=== PATIENT | male | born 1955 | race Caucasian/White ===

== ENCOUNTER 2019-09-30 06:20 | Inpatient (IN) | payer OTHER, MEDICAID ==
[~2019-09-30] VITALS: Ht 182.9 cm; Wt 59.9 kg
[2019-09-30 06:40] VITALS: BP_SYST 125
--- NOTE | 2019-09-30 06:40 | NUR ---
Patient to ER bed 1 to gown for evaluation. Side rails up.
--- NOTE | 2019-09-30 06:40 | NUR ---
BULMARO Hitchcock at bedside examining patient.
--- NOTE | 2019-09-30 06:40 | NUR ---
Pt brought in by . Pt awake, alert, oriented x3. Pt has muscular dystrophy and is wheelchair bound with R sided defecits from previous cerebral event per . Pt states that he has been having diffused abdominal pain 7/10 for approximately 2 days prior to coming to the ED. Pt states that he also has abdominal hernia that he has been bothered by in the past. Pt states that he would like to find out whats going on with it. Pt denies chest pain, nausea, vomiting, diarrhea, shortness of breath. pt denies any other medical complaint at this time. VSS
[2019-09-30] MEDS ORDERED: NACL 0.9% 1,000 ML IV ONE (06:45)
[2019-09-30] MEDS ORDERED: KETOROLAC TROMETHAMINE 30 MG VIAL IVP ONE (06:45)
--- NOTE | 2019-09-30 07:00 | NUR ---
Pt to CT via [facility].
[2019-09-30] MEDS ORDERED: LUBI24CA5 PO (07:02)
[2019-09-30] MEDS ORDERED: ERGO500020 PO (07:03)
[2019-09-30] MEDS ORDERED: SERT50TA12 PO (07:03)
[2019-09-30] MEDS ORDERED: MONT10TA25 PO (07:04)
[2019-09-30] MEDS ORDERED: MODA200T48 PO (07:05)
[2019-09-30] MEDS ORDERED: AMLO1TAB13 PO (07:06)
[2019-09-30] MEDS ORDERED: TEST75AU SQ (07:07)
--- NOTE | 2019-09-30 07:19 | NUR ---
Pt back from CT, returned to [facility]
--- NOTE | 2019-09-30 07:42 | NUR ---
report received from Scottie MORRISON. Pt returned from CT scan in stable condition.
--- NOTE | 2019-09-30 07:50 | NUR ---
Report Given to TAMIKO Zaragoza. All care endorsed.
--- NOTE | 2019-09-30 08:00 | NUR ---
# 22 gauge angiocath placed to left bicep. Use of asceptic technique. Opsite placed over site. Blood return noted. Blood for lab drawn from site. Flushed with 10 cc of normal saline. No evidence of infiltration noted. Patient tolerated well.
[2019-09-30 08:04] LABS: BASOPHILS # (AUTO) 0.1 K/uL (0.0-0.2); BASOPHILS % (AUTO) 0.3 % (0.0-2.0); EOSINOPHILS % (AUTO) 0.2 % (0.0-4.0); HEMATOCRIT 51.1 % (36-54); HEMOGLOBIN 17.2 g/dL (14.0-18.0); LYMPHOCYTES % (AUTO) 4.3 % (20.5-51.5); MEAN CORPUSCULAR HEMOGLOBIN 31 pg (27-31); MEAN CORPUSCULAR HGB CONC 34 % (32-36); MEAN CORPUSCULAR VOLUME 92 fL (79.0-98.0); MONOCYTES # (AUTO) 2.6 K/uL (0.0-1.0); MONOCYTES % (AUTO) 11.6 % (1.7-9.3); NEUTROPHILS # (AUTO) 19.1 K/uL (1.8-7.7); NEUTROPHILS % (AUTO) 83.6 % (40.0-70.0); PLATELET COUNT (AUTO) 205 K/uL (130-430); RED BLOOD CELL COUNT(AUTO) 5.56 MIL/uL (4.2-6.2); RED CELL DISTRIBUTION WIDTH 14.2 % (9.0-15.0); WHITE BLOOD COUNT (AUTO) 22.8 K/uL (4.8-10.8)
--- NOTE | 2019-09-30 08:10 | NUR ---
NS 1l infusing per MD order. Medicated the pt w/ Toradol for pain. Will reassess.
[2019-09-30 08:17] LABS: CREATININE 1.15 mg/dL (0.55-1.30); POTASSIUM 4.4 mmol/L (3.5-5.1)
[2019-09-30 08:21] LABS: ALBUMIN 4.2 g/dL (3.4-4.8); TOTAL BILIRUBIN 1.3 mg/dL (0.0-1.0)
[2019-09-30] MEDS: D5NS 1,000 ML IV SCH ×2 (09:07→21:46)
--- NOTE | 2019-09-30 09:13 | NUR ---
called for a Med Surg bed. Info given to Tom NUNEZ
[2019-09-30] MEDS ORDERED: metroNIDAZOLE 500 mg/NS 100 ML IV ONE ×3 (09:15→19:45)
--- NOTE | 2019-09-30 12:10 | NUR ---
Flagyl IVPB given per md order. Blood cx were drawn priorly.
--- NOTE | 2019-09-30 14:00 | NUR ---
Pt getting lactic acid drawn at the bedside
--- NOTE | 2019-09-30 14:26 | NUR ---
Medication reconciliation completed with information provided by pt's . Any prior medication reconciliation on file was reviewed and corrected.
[2019-09-30 15:00] VITALS: BP_SYST 135
--- NOTE | 2019-09-30 15:15 | NUR ---
Patient will be admitted to care of Dr. Monet. Admitted to Med Surg unit. Will go to room 117-B. Belongings list completed. Complete and up to date summary report printed. SBAR report to be given at bedside with opportunity for questions. IV is on the left bicep, patent and infusing well.
--- NOTE | 2019-09-30 16:00 | NUR ---
ADMISSION: RECEIVED PT FROM ER IN STABLE CONDITION, A/A/OX3, DX: SAFETY/ DISCOMFORT, R/T ABD PAIN. PT HAS NO C/O PAIN AT THIS TIME, VS WNL, AFEBRILE, BREATH SOUNDS ARE CLEAR, BREATHING UNLABORED, SKIN INTACT,WARM, DRY TO TOUCH, POSITIONED FOR COMFORT, AT BEDSIDE, CALL LIGHT PLACED WITHIN REACH, WILL CONT' TO MONITOR AND ASSESS.
[2019-09-30 16:43] LABS: BILIRUBIN,URINE 1+ (NEGATIVE); BLOOD, URINE 3+ (NEGATIVE); CLARITY/URINE SL CLOUDY (CLEAR); COLOR,URINE YELLOW (YELLOW); GLUCOSE,URINE 1+ (NEGATIVE); KETONES,URINE TRACE (NEGATIVE); LEUKOCYTE ESTERASE ,URINE 2+ (NEGATIVE); NITRITE, URINE NEGATIVE (NEGATIVE); PROTEIN URINE TRACE (NEGATIVE)
[2019-09-30 16:58] LABS: BACTERIA,URINE FEW /HPF (None Seen); WBC,URINE >100 /HPF (0-3)
[2019-09-30 17:00] LABS: MUCUS,URINE None Seen /LPF (None Seen)
[2019-09-30 17:01] LABS: FINE GRANULAR CASTS,URINE 0-10 /LPF (None Seen); URINE AMORPHOUS URATE 3+ /HPF (None Seen)
--- NOTE | 2019-09-30 18:00 | NUR ---
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
--- NOTE | 2019-09-30 18:35 | NUR ---
PAGED: I PAGED DR. HERZOG I SPOKE WITH NITO LOZANO FOR THIS NEW ADMISSION PATIENT
[2019-09-30] MEDS ORDERED: MORPHINE 2 MG/ML INJ. SYRINGE IVP PRN (18:45)
[2019-09-30] MEDS ORDERED: ONDANSETRON HCL 4 MG/2 ML VIAL IVP PRN (18:45)
[2019-09-30] MEDS ORDERED: METOCLOPRAMIDE HCL 10 MG/2 ML VIAL IVP PRN (18:45)
[2019-09-30] MEDS ORDERED: ACETAMINOPHEN 325 MG TABLET PO PRN (18:45)
[2019-09-30 19:00] VITALS: BP_SYST 133
--- NOTE | 2019-09-30 19:15 | NUR ---
change of shift.pt is a new admission.pt.presents hx;multiple sclerosis.pt.presents rt.sided weakness.pt.presents speech status;slurred. i am to f/u re;iv fluids,abx initiation.general status stable.respiratory status stable;unlabored@room air.call light/telephone w/in reach of the pt:lt.side;hand.
[2019-09-30 20:00] VITALS: BP_SYST 133
--- NOTE | 2019-09-30 20:00 | NUR ---
pt.assessed.v/s assessed;values w/in normal limits./no c/o pain,nausea.i have provided the indication:npo diet status.i have assisted the pt w/the urinal:measured/cleaned;placed w/in reach of the pt;lt.side;hand. pt.assessed for cleanliness.pt.repositioned.call light/telephone placed w/in reach of the pt:lt.side;hand.
--- NOTE | 2019-09-30 20:30 | NUR ---
pt.submitted to us;abdomen.per .to await the results.
--- NOTE | 2019-09-30 21:00 | NUR ---
i have assisted the pt. w/the urinal.measured/cleaned placed w/in reach of the pt.lt.side;hand.no c/o pain,nausea.
[2019-09-30] MEDS: LEVOFLOXACIN 500 MG/D5W 100 ML IV SCH (21:45)
--- NOTE | 2019-09-30 22:00 | NUR ---
pt.assessed.pt.presents quiescent affect;calm.i have assisted the pt.w/the urinal.measured/cleaned.i have initiated the iv fluids administration. i have initiated the administration of the abx;levaquin,flagyl.iv access:location:lt.bicept.intact;patent.pt assessed for cleanliness.pt repositioned.call light/telephone placed w/in reach of the pt.lt.side;hand.
--- NOTE | 2019-09-30 22:14 | NUR ---
PAGED I PAGED DR. HERZOG @ 1998 I SPOKE WITH NITO HERZOG CALLED BACK @ [phone]
--- NOTE | 2019-09-30 22:15 | NUR ---
paged;re the results;us:abdomen.awaiting the return call per .
--- NOTE | 2019-09-30 22:30 | NUR ---
returned the paged.i have apprised of the results;us:abdomen. ordered to paged and convey results to .;a paged.
--- NOTE | 2019-09-30 22:43 | NUR ---
PAGED/ CONSULT I PAGED DR. DÍAZ, ELISA RABAGO RN INFORMED HIM ABOUT THE CONSULT FOR GALLSTONES
--- NOTE | 2019-09-30 22:45 | NUR ---
;elana returned the page.i have conveyed to the results;us;abdomen.pt.is possible surgery per ;in am; 10/01/19.
[2019-10-01] VITALS: BP_SYST 125
--- NOTE | 2019-10-01 | NUR ---
pt.assessed.v/s assessed.values w/in normal limits.no c/o pain,nausea.iv access intact;patent.iv fluids infusing. general status stable.respiratory status stable;unlabored.pt.assessed for cleanliness.pt.repositioned.i have attended to the urinal. call light/telephone placed w/in reach of the pt.
--- NOTE | 2019-10-01 02:00 | NUR ---
pt.assessed.pt.presents quiescent affect;calm,somnolent.pt.assessed for cleanliness.pt.repositioned.i have attended to the urinal. iv access intact;patent.iv fluids infusing.no c/o pain,nausea.general status stable.respiratory status stable. call light/telephone placed w/in reach of the pt:lt.side;hand.
--- NOTE | 2019-10-01 04:00 | NUR ---
pt.assessed.pt.presents quiescent affect;calm,somnolent.pt.assessed for cleanliness.pt.repositioned.iv access intact;patent;iv fluids infusing.general status stable.respiratory status stable;unlabored.urinal w/in reach of the pt.lt.side;hand.call light/telephone placed w/in reach of the pt;lt.side;hand.
[2019-10-01] MEDS: metroNIDAZOLE 500 mg/NS 100 ML IV SCH ×3 (05:45→21:03)
[2019-10-01] MEDS: MORPHINE 4 MG/ML INJ. SYRINGE IVP PRN (05:48)
--- NOTE | 2019-10-01 06:30 | NUR ---
pt.assessed.pt.assessed for cleanliness.pt.cleaned.pt repositioned.pt.had requested medication;pain.i administered morphine;4mg ivp;pt.gestured;head that the medication was efficacious.upon re-assessment.i administered the flagyl;0600a dose.i telephoned the pt's .i apprised her that the surgeon; had ordered surgery:pt's adamant that the pt.may not require surgery and discuss the possible surgery w//sharonda family members and the pt's neurologist:out/pt.iv access intact;patent iv;fluids infusing.call light/.telephone placed w/in reach of the pt.
[2019-10-01 07:27] LABS: BASOPHILS % (AUTO) 0.2 % (0.0-2.0); EOSINOPHILS # (AUTO) 0.1 K/uL (0.0-0.4); EOSINOPHILS % (AUTO) 0.8 % (0.0-4.0); HEMATOCRIT 42.8 % (36-54); HEMOGLOBIN 14.3 g/dL (14.0-18.0); LYMPHOCYTES # (AUTO) 0.9 K/uL (1.0-5.5); LYMPHOCYTES % (AUTO) 4.7 % (20.5-51.5); MEAN CORPUSCULAR HEMOGLOBIN 31 pg (27-31); MEAN CORPUSCULAR HGB CONC 33 % (32-36); MEAN CORPUSCULAR VOLUME 92 fL (79.0-98.0); MONOCYTES # (AUTO) 2.1 K/uL (0.0-1.0); NEUTROPHILS # (AUTO) 16.2 K/uL (1.8-7.7); NEUTROPHILS % (AUTO) 83.3 % (40.0-70.0); PLATELET COUNT (AUTO) 167 K/uL (130-430); RED BLOOD CELL COUNT(AUTO) 4.63 MIL/uL (4.2-6.2); RED CELL DISTRIBUTION WIDTH 13.9 % (9.0-15.0); WHITE BLOOD COUNT (AUTO) 19.4 K/uL (4.8-10.8)
--- NOTE | 2019-10-01 07:30 | NUR ---
Opening note patient resting in bed at this time, A/ox4, no complaints of pain. Iv patent, intact, and infusing fluids as ordered. no adverse side effects. No infiltration noted. On safety and aspiration precautions, HOB kept elevated, 3 side rails up, bed alarm on, call light within reach. patient in stable condition. Will continue to monitor.
[2019-10-01 07:47] LABS: INR 1.1 (0.80-1.20); PROTHROMBIN TIME 10.8 SECS (9.5-12.5)
[2019-10-01 08:00] VITALS: BP_SYST 135
[2019-10-01 08:27] LABS: CALCIUM 7.8 mg/dL (8.4-11.0); CREATININE 0.82 mg/dL (0.55-1.30); POTASSIUM 3.5 mmol/L (3.5-5.1); TOTAL BILIRUBIN 0.8 mg/dL (0.0-1.0)
[2019-10-01] MEDS: LOSARTAN POTASSIUM 50 MG TABLET (COZAAR) PO SCH (09:00)
[2019-10-01] MEDS ORDERED: VALSARTAN PO SCH (09:00)
[2019-10-01] MEDS: SERTRALINE HCL 50 MG TABLET PO SCH (09:00)
[2019-10-01] MEDS ORDERED: [UNRECOGNIZED DRUG - OTHER] PO SCH (09:00)
[2019-10-01] MEDS ORDERED: AMLODIPINE BESYLATE PO SCH (09:00)
[2019-10-01] MEDS: amLODIPine BESYLATE 10 MG TABLET PO SCH (09:00)
--- NOTE | 2019-10-01 09:00 | NUR ---
medications Morning medications held, patient is NPO, awaiting surgery.
--- NOTE | 2019-10-01 10:34 | NUR ---
Nutrition Update Beau Scale 14 noted. Pt admitted for abd pain. Diet: NPO BMI: 18 kg/m2 RD to follow per nutrition care standards.
--- NOTE | 2019-10-01 11:30 | NUR ---
Consent Consent for surgery and anesthesia signed by at bedside.
[2019-10-01] MEDS: D5NS 1,000 ML IV SCH (11:49)
[2019-10-01 11:59] VITALS: BP_SYST 117
--- NOTE | 2019-10-01 13:30 | NUR ---
Surgery CHG bath provided, patient left for surgery in stable condition at this time.
[2019-10-01] MEDS ORDERED: IOHEXOL 0 ML IV ONE (14:13)
--- NOTE | 2019-10-01 16:18 | NUR ---
Dietitian Recommendations * Consider advance diet if/when medically appropriate * Consider ONS for weight gain promotion LP, RD Please refer to Nutrition Assessment for details. Addendum: 10/01/19 at [address] Amended: Links added.
[2019-10-01] MEDS ORDERED: ROCURONIUM BROMIDE 10 MG/ML (ZEMURON) ONE (16:41)
[2019-10-01] MEDS ORDERED: LR 1,000 ML IV.SOLN IV ONE (16:41)
[2019-10-01] MEDS ORDERED: PROPOFOL 200MG/ 20ML VIAL (DIPRIVAN) IV ONE (16:41)
[2019-10-01] MEDS ORDERED: NS 1000 ML IV.SOLN IV ONE (16:41)
[2019-10-01] MEDS ORDERED: ONDANSETRON HCL 4 MG/2 ML VIAL ONE (16:41)
[2019-10-01] MEDS ORDERED: SUGAMMADEX SODIUM 200 MG/2 ML VIAL IV ONE (16:41)
[2019-10-01] MEDS ORDERED: fentaNYL CITRATE/PF 100 MCG/2 ML AMP ONE (16:41)
[2019-10-01] MEDS ORDERED: DEXAMETHASONE SOD PHOSPHATE 4 MG/ML VIAL ONE (16:41)
[2019-10-01] MEDS ORDERED: MIDAZOLAM HCL 5 MG/ML VIAL (VERSED) IV ONE (16:41)
[2019-10-01] MEDS ORDERED: ePHEDrine sulfate 50 MG/ML VIAL ONE (16:41)
[2019-10-01] MEDS ORDERED: SEVOFLURANE 15 MIN GAS INH ONE (16:41)
[2019-10-01] MEDS ORDERED: NS IRRIG SOLN 1000 ML IR ONE (16:41)
[2019-10-01] MEDS ORDERED: LR 1,000 ML IV ONE (17:03)
[2019-10-01] MEDS ORDERED: HYDROcodone/ACETAMIN 5-325 MG TAB (NORCO/ VICODIN) PO PRN (17:15)
[2019-10-01] MEDS ORDERED: HYDROmorphone 1 MG INJ. 1 MG/ML AMPUL IVP PRN ×2 (17:15→17:45)
[2019-10-01] MEDS ORDERED: HYDROmorphone 1 MG INJ. 1 MG/ML AMPUL ONE (17:26)
--- NOTE | 2019-10-01 17:40 | NUR ---
patient returns from surgery patient returned from surgery in stable condition. 4 incisions noted. 1 JOSE CARLOS drain draining red drainage 10cc. No other needs at this time.
[2019-10-01] MEDS ORDERED: MONTELUKAST 10 MG TABLET PO SCH (18:00)
--- NOTE | 2019-10-01 18:33 | NUR ---
Closing note patient resting in bed at this time, A/ox4, no complaints of pain. Iv patent, intact, and infusing fluids as ordered. no adverse side effects. No infiltration noted. On safety and aspiration precautions, HOB kept elevated, 3 side rails up, bed alarm on, call light within reach. patient in stable condition. All needs met.
--- NOTE | 2019-10-01 19:20 | NUR ---
OPENING NOTE RECEIVED CARE OF PT AND SBAR REPORT. PT IS AAOX4, RESTING IN BED. PT'S IS AT BEDSIDE. VSS. PT DENIES PAIN OR DISCOMFORT AT THIS TIME. BREATHING IS UNLABORED TO ROOM AIR. IVF ARE INFUSING AT ORDERED RATE, NO SIGN OF INFILTRATION AT IV SITE. SAFETY PRECAUTIONS ARE IN PLACE: BED IS LOCKED IN LOWEST POSITION, SIDE RAILS UP X3, CALL LIGHT IS WITH PT, BED ALARM IS ON. WILL CONT TO MONITOR. Addendum: 10/02/19 at 0133 by Laquita Garcia RN 4 INCISIONS NOTED ON ABDOMEN, JOSE CARLOS DRAIN TO RIGHT ABDOMEN IS INTACT.
[2019-10-01] MEDS: LEVOFLOXACIN 500 MG/D5W 100 ML IV SCH (19:48)
[2019-10-01 20:00] VITALS: BP_SYST 131
--- NOTE | 2019-10-01 21:03 | NUR ---
ANTIBIOTIC SCHEDULED FLAGYL KISHA, NO S/S OF ADVERSE REACTION NOTED. IV IS PATENT AND INFUSING WELL.
--- NOTE | 2019-10-01 23:30 | NUR ---
RN NOTE: PT GIVEN APPLESAUCE PER REQUEST. PT ASSISTED WITH EATING. ASPIRATION PRECAUTIONS MAINTAINED. PT DENIES FURTHER NEEDS AT THIS TIME. SAFETY PRECAUTIONS ARE IN PLACE. WILL MONITOR.
[2019-10-02 00:28] VITALS: BP_SYST 126
--- NOTE | 2019-10-02 01:55 | NUR ---
RESTING PT RESTING IN BED, AWAKE, NO S/S OF ACUTE DISTRESS. PT DENIES PAIN AT THIS TIME. BREATHING IS UNLABORED TO ROOM AIR. SAFETY PRECAUTIONS ARE IN PLACE. WILL MONITOR.
--- NOTE | 2019-10-02 04:08 | NUR ---
RN ROUNDS: PT RESTING IN BED, NO S/S OF DISTRESS, NO SIGN OF PAIN, BREATHING IS EVEN AND UNLABORED TO ROOM AIR. SAFETY PRECAUTIONS REMAIN IN PLACE. WILL MONITOR.
[2019-10-02] MEDS: metroNIDAZOLE 500 mg/NS 100 ML IV SCH (05:23)
[2019-10-02] MEDS: D5NS 1,000 ML IV SCH (05:23)
[2019-10-02] MEDS: MORPHINE 4 MG/ML INJ. SYRINGE IVP PRN (05:25)
--- NOTE | 2019-10-02 05:25 | NUR ---
PAIN/MORPHINE PT REPORTING SEVERE ABDOMINAL PAIN. MORPHINE 4 MG IVP ADMINISTERED ORDERED PRN. MEDICATION AND POTENTIAL SIDE EFFECTS DISCUSSED, PT VERBALIZED UNDERSTANDING. NO S/S OF ACUTE DISTRESS. BREATHING IS UNLABORED TO ROOM AIR. SAFETY MAINTAINED. WILL MONITOR.
--- NOTE | 2019-10-02 06:31 | NUR ---
Closing note Patient resting in bed at this time, A/ox4, no complaints of pain. Iv patent, intact, and infusing fluids as ordered. no adverse side effects. No infiltration noted. On safety and aspiration precautions, HOB kept elevated, 3 side rails up, bed alarm on, call light within reach. patient in stable condition. All needs met. Will endorse to day shift RN.
[2019-10-02 07:24] LABS: BASOPHILS % (AUTO) 0.2 % (0.0-2.0); EOSINOPHILS % (AUTO) 0.2 % (0.0-4.0); HEMATOCRIT 39.5 % (36-54); HEMOGLOBIN 13.1 g/dL (14.0-18.0); LYMPHOCYTES # (AUTO) 0.8 K/uL (1.0-5.5); LYMPHOCYTES % (AUTO) 5.4 % (20.5-51.5); MEAN CORPUSCULAR HEMOGLOBIN 31 pg (27-31); MEAN CORPUSCULAR HGB CONC 33 % (32-36); MEAN CORPUSCULAR VOLUME 93 fL (79.0-98.0); MONOCYTES # (AUTO) 1.5 K/uL (0.0-1.0); MONOCYTES % (AUTO) 9.5 % (1.7-9.3); NEUTROPHILS # (AUTO) 13.2 K/uL (1.8-7.7); NEUTROPHILS % (AUTO) 84.7 % (40.0-70.0); PLATELET COUNT (AUTO) 171 K/uL (130-430); RED BLOOD CELL COUNT(AUTO) 4.25 MIL/uL (4.2-6.2); RED CELL DISTRIBUTION WIDTH 13.8 % (9.0-15.0); WHITE BLOOD COUNT (AUTO) 15.6 K/uL (4.8-10.8)
--- NOTE | 2019-10-02 07:30 | NUR ---
Opening note patient resting in bed at this time, A/ox4, no complaints of pain. Iv patent, intact, and infusing fluids as ordered. no adverse side effects. No infiltration noted. JOSE CARLOS drain in place, draining red output. dressing intact. On safety and aspiration precautions, HOB kept elevated, 3 side rails up, bed alarm on, call light within reach. patient in stable condition. Will continue to monitor.
[2019-10-02 07:41] LABS: ALBUMIN 2.7 g/dL (3.4-4.8); CALCIUM 7.6 mg/dL (8.4-11.0); CREATININE 0.91 mg/dL (0.55-1.30); TOTAL BILIRUBIN 0.6 mg/dL (0.0-1.0)
[2019-10-02 08:00] VITALS: BP_SYST 109
[2019-10-02] MEDS: amLODIPine BESYLATE 10 MG TABLET PO SCH (08:21)
[2019-10-02] MEDS: LOSARTAN POTASSIUM 50 MG TABLET (COZAAR) PO SCH (08:22)
[2019-10-02] MEDS: SERTRALINE HCL 50 MG TABLET PO SCH (08:22)
--- NOTE | 2019-10-02 09:00 | NUR ---
medications Morning medications given as ordered. no adverse side effects. no complaints of pain.
--- NOTE | 2019-10-02 11:00 | NUR ---
Rounds patient resting in bed at this time, no complaints of pain. urinal emptied, skin care provided, no other needs at this time.
[2019-10-02 12:28] VITALS: BP_SYST 100
--- NOTE | 2019-10-02 13:00 | NUR ---
JOSE CARLOS drain teaching. educated patient and on how to empty the JOSE CARLOS drain and when to change dressing/ how to change dressing. patient verbalized understanding. return demonstration done by . Supplies provided. No other needs.
[2019-10-02 13:19] VITALS: BP_SYST 100
--- NOTE | 2019-10-02 14:20 | NUR ---
D/C Patient Patient given medication reconciliation form and D/C instructions. Exit Care provided. Patient verbalized understanding. MD discussed with patient the results and treatment provided. Ambulatory with steady gait for discharge to home. Patient in stable condition, ID band removed. IV catheter removed, intact and dressing applied, no active bleeding. Rx of augmentin and norco given. Patient educated on pain management. All belongings sent with patient.
== END 2019-10-02 14:20 | disposition home or self-care (01) | DRG 854 ==
LOC: SED 06:20 → SMU 09:07
PROVIDERS: ADMIT Internal Medicine Hospice and Palliative Medicine; ATTEND Internal Medicine Hospice and Palliative Medicine
PROC: 0F9430Z Drainage of Gallbladder with Drainage Device, Percutaneous Approach (ICD-10-PCS; 2019-10-01)
PROC: 0FT44ZZ Resection of Gallbladder, Percutaneous Endoscopic Approach (ICD-10-PCS; principal; 2019-10-01 14:35)
DX: A41.9 Sepsis, unspecified organism (principal); K80.00 Calculus of gallbladder with acute cholecystitis without obstruction; G81.91 Hemiplegia, unspecified affecting right dominant side; G35 Multiple sclerosis; I10 Essential (primary) hypertension; K82.A1 Gangrene of gallbladder in cholecystitis; Z99.3 Dependence on wheelchair; Z88.0 Allergy status to penicillin; Z79.899 Other long term (current) drug therapy; Z74.01 Bed confinement status
CPT/HCPCS: 36415; 71045; 76700-TC; 80053; 81000-TC; 83605; 83690-TC; 85025; 85610-TC; 85730-TC; 86886; 86900; 86901; 87040-TC; 87081; 87086; 87186-TC; 88304; 93005; 96361; 96365; 96375; 99285; C1727; C9399; J1100; J1170; J1885; J1956; J2250; J2270; J2405; J2704; J3010; J3490; J7030; J7042; J7120; Q9967